=== PATIENT | female | born 1970 | race Caucasian/White ===

== ENCOUNTER 2021-09-05 23:33 | Emergency (ER) | payer BC ==
[~2021-09-05] VITALS: Ht 160 cm; Wt 103.0 kg
[2021-09-06] MEDS ORDERED: NAPROSYN500 MG PO (00:10)
[2021-09-06] MEDS ORDERED: CLEOCIN HCL300 MG PO (00:10)
== END 2021-09-06 00:37 | disposition home or self-care (01) ==
LOC: ER 23:38
DX: S02.5XXA Fracture of tooth (traumatic), initial encounter for closed fracture (principal); K02.9 Dental caries, unspecified; I10 Essential (primary) hypertension; E11.9 Type 2 diabetes mellitus without complications; E78.5 Hyperlipidemia, unspecified
CPT/HCPCS: 99282